=== PATIENT | female | born 1970 | race Caucasian/White ===

== ENCOUNTER 2017-03-24 05:48 | Inpatient (IN) | payer OTHER ==
[~2017-03-24] VITALS: Ht 152.4 cm; Wt 57.1 kg
[2017-03-24] VITALS (29 sets, daily range): BP systolic 100–140; BP diastolic 61–80; PULSE 64–94; RESP 16–24; Ht 152.4 cm; Wt 57.1 kg
[2017-03-24] MEDS ORDERED: HYDR-906 PO (07:01)
[2017-03-24] MEDS ORDERED: ONDANSETRON 4 MG INJ IV STA (08:13)
[2017-03-24] MEDS ORDERED: MEPERIDINE 50 MG INJ IV ONE (08:30)
[2017-03-24] MEDS ORDERED: NEOSTIGMINE 3 MG/3 ML SYRINGE ONE (10:45)
[2017-03-24] MEDS ORDERED: PROPOFOL 20 ML ONE (10:45)
[2017-03-24] MEDS ORDERED: FENTAnyl 50 MCG/ML VIAL ONE (10:45)
[2017-03-24] MEDS ORDERED: ROCURONIUM 50 MG INJ ONE (10:45)
[2017-03-24] MEDS ORDERED: LIDOCAINE 2% (SDV) 5 ML INJ ONE (10:45)
[2017-03-24] MEDS ORDERED: GLYCOPYRROLATE 0.4 MG INJ ONE (10:45)
[2017-03-24] MEDS ORDERED: MIDAZOLAM 1 MG/ML 2 ML INJ ONE (10:46)
[2017-03-24] MEDS ORDERED: morphine SULFATE/PF (10 MG/10 ML) INJ ONE (10:46)
[2017-03-24] MEDS ORDERED: DEXAMETHASONE 4 MG/ML 1 ML INJ ONE (10:51)
[2017-03-24] MEDS ORDERED: ONDANSETRON 4 MG INJ ONE (10:51)
[2017-03-24] MEDS ORDERED: LABETALOL HCL 20MG INJ ONE (11:52)
--- NOTE | 2017-03-24 12:49 | PREOPHP ---
DATE OF ADMISSION: 03/24/2017 HISTORY OF PRESENT ILLNESS: This is a 47-year-old lady 3, para 3. Her last normal menstrual period was many months ago. She was admitted for exploratory laparotomy, supracervical hysterectomy, possible. Dictated By: Jazmin Montero MD /[email or web address]/kana /Document#: [id number]
--- NOTE | 2017-03-24 13:14 | PREOPHP ---
DATE OF ADMISSION: 03/24/2017 HISTORY OF PRESENT ILLNESS: This is a 47-year-old lady, 3, para 3. Her last normal menstrual period was many months ago. She was admitted for exploratory laparotomy, supracervical hysterectomy, possible HETAL and BSO. This patient complains of on and off vaginal bleeding for many months and getting worse up to the time of admission. She also has chronic pelvic pain for many months as well. She had gone to [facility] because of anemia. She was given blood products substitute. Patient is [employer]. The time of the day prior to admission her hematocrit was 33 percent. The splitter tender, Dr. Ramos was notified of the surgery and she saw the patient before the surgery. The patient does not like her ovaries to be taken out if the ovaries looks normal. She also knows that she would like her cervix to be left behind as she has normal Pap smears. PAST MEDICAL HISTORY: No history of TB, asthma. PAST SURGICAL HISTORY: She had spine surgery 2010, she had surgery 2002 and 2004. She had kidney surgery 2002. She had tubal ligation in 1998. FAMILY HISTORY: Mother has high blood pressure, diabetes, and cancer. ALLERGIES: NO ALLERGIES. SOCIAL HISTORY: The patient does not smoke. She does not drink. She does not take any drugs except her iron and vitamins. She had menarche at the age of 12, every 28 days interval, 3-4 days duration and moderate in amount. FAMILY HISTORY: Noncontributory. She is 3, para 3 with 3 normal deliveries. REVIEW OF SYSTEMS: CARDIOVASCULAR: No chest pains. RESPIRATORY: No cough. GASTROINTESTINAL: No diarrhea, no vomiting. GENITOURINARY: No dysuria. PHYSICAL EXAMINATION: GENERAL: Reveals a conscious, coherent lady, and in not acute distress. VITAL SIGNS: Her blood pressure 120/70, pulse rate 80 per minute, respirations 16 per minute. BREASTS, HEART AND LUNGS: Within normal limits. ABDOMEN: Soft. No organomegaly. PELVIC: Exam revealed the cervix to be firm. Uterus about 12 weeks' size and adnexa were negative for masses. RECTAL: Confirmed the pelvic findings. EXTREMITIES: No pedal edema. ADMITTING DIAGNOSES: Fibroid uterus, menometrorrhagia and chronic pelvic pain. The patient was planned to have the above procedure. Dictated By: Jazmin Montero MD /[email or web address]/kana /Document#: [id number] MTDD
--- NOTE | 2017-03-24 13:32 | SIPON ---
Date/Time of Note Date/Time of Note DATE: 03/24/17 TIME: 13:28 Operative Report Preoperative Diagnosis MENOMETRORRHAGIA FIBROID UTERUS CHRONIC PELVIC PAIN PERINEAL RELAXATION Postoperative Diagnosis MENOMETRORRHAGIA FIBROID UTERUS CHRONIC PELVIC PAIN PERINEAL RELAXATION PELVIC ADHESION Operation/Procedure Performed SUPRACERVICAL HYSTERECTOMY LYSIS OF ADHESION BILATERAL SALPINGECTOMY VAGINAL VAULT SUSPENSION Surgeon see signature line dental laboratory assistant DR GALAN Anesthesia: general Estimated blood loss: 250 - 300 ml's Transfusion Required none Specimen PARTS OF CERVIX BODY OF UTERUS BOTH TUBES Grafts/Implants none Complications none LEMUEL CARRASQUILLO MD Mar 24, 2017 13:32
[2017-03-24] MEDS: HYDROmorphONE (0.2 MG/ML) 10ML SYG IV PRN ×3 (13:57→14:10)
[2017-03-24] MEDS ORDERED: morphine (1 MG/ML) 10ML SYRINGE IV PRN (14:00)
[2017-03-24] MEDS ORDERED: hydrALAzine 20 MG INJ IV PRN (14:00)
[2017-03-24] MEDS ORDERED: MIDAZOLAM 1 MG/ML 2 ML INJ IV PRN (14:00)
[2017-03-24] MEDS ORDERED: FENTAnyl 50 MCG/ML VIAL IV PRN ×3 (14:00)
[2017-03-24] MEDS ORDERED: TRIMETHOBENZAMIDE 100 MG/ML VIAL IM PRN (14:00)
[2017-03-24] MEDS ORDERED: ALBUMIN HUMAN 5% 250 ML IV PRN (14:00)
[2017-03-24] MEDS ORDERED: HYDROmorphONE (0.2 MG/ML) 10ML SYG IV PRN ×2 (14:00)
[2017-03-24] MEDS ORDERED: METOCLOPRAMIDE 10 MG INJ IV PRN (14:00)
[2017-03-24] MEDS ORDERED: KETOROLAC 30 MG INJ IV PRN (14:00)
[2017-03-24] MEDS ORDERED: ONDANSETRON 4 MG INJ IV PRN (14:00)
[2017-03-24] MEDS ORDERED: DIPHENHYDRAMINE 50 MG INJ IV PRN (14:00)
[2017-03-24] MEDS ORDERED: MEPERIDINE 25 MG INJ IV PRN (14:00)
[2017-03-24] MEDS ORDERED: EPHEDrine SULFATE 50 MG/5 ML SYG IV PRN (14:00)
[2017-03-24] MEDS ORDERED: ALBUTEROL 0.083% (NEB) 2.5 MG/3 ML AMP HHN PRN (14:00)
--- NOTE | 2017-03-24 14:32 | CONS ---
Date/Time of Note Date/Time of Note DATE: 03/24/17 TIME: 14:22 Assessment/Plan Assessment/Plan Chief Complaint/Hosp Course 47 yo with #iron deficiency anemia #menorrhagia #admission for hysterectomy -currently patient's Hg is at 11.3 and stable -if patient bleeds profusely during the surgery and/ or her Hg drop below 8 after surgery, we will be ready to start Procrit and IV iron if necessary. This will bring up the Hg gradually without a blood transfusion being necessary.] -pt may proceed with surgery at this time -she should continue with po iron as an out patient Problems: Consultation Date/Type/Reason Admit Date/Time Mar 24, 2017 at 06:23 Date of Consultation: Mar 24, 2017 Type of Consultation: hematology Reason for Consultation anemia in a Jehovah witness Referring Provider: LEMUEL CARRASQUILLO MD Hx of Present Illness 47-year-old [id number] who is being admitted for exploratory laparotomy and possible HETAL and BSO. This patient has had heavy menstrual bleeding and has required hospitalizations. Given that she does not accept blood transfusion she has required procrit and iron in the past elevate her Hg. We have been consulted to assist with her anemia in the case that she has heavy bleeding during the surgery. Subjective hx not possible: other (tired) Constitutional: no complaints, poor po Eyes: no complaints ENT: no complaints Respiratory: no complaints Cardiovascular: no complaints Gastrointestinal: decreased appetite Genitourinary: bleeding Musculoskeletal: no complaints Skin: no complaints Neurologic: no complaints Past Medical History She had spine surgery 2010, she had surgery 2002 and 2004. She had kidney surgery 2002. She had tubal ligation in 1998. Family History Significant Family History: other (diabetes and HTN in her family) Social History Alcohol Use: none Smoking Status: Never smoker Exam/Review of Systems Vital Signs Vitals Vital Signs Date Time Temp Pulse Resp B/P Pulse Ox O2 Delivery O2 Flow Rate FiO2 03/24/17 13:48 76 19 114/77 100 Room Air 03/24/17 13:40 98.0 Exam Constitutional: alert, oriented Psych: no complaints Head: normocephalic Eyes: nl conjunctiva ENMT: nl external ears & nose Neck: non-tender, supple Respiratory: clear to auscultation Cardiovascular: regular rate and rhythm Musculoskeletal: nl extremities to inspection Medications Medications Current Medications Ondansetron HCl (Zofran Inj) 4 mg Q4H PRN IV NAUSEA AND/OR VOMITING; Start at 14:00 Bisacodyl (Dulcolax Supp) 10 mg ONCE ONCE DC ; Start 03/25/17 at 06:00; Stop 03/25/17 at 06:01 Bisacodyl (Dulcolax Supp) 10 mg ONCE ONCE DC ; Start 03/25/17 at 17:00; Stop 03/25/17 at 17:01 Magnesium Hydroxide (Milk Of Mag) 30 ml ONCE ONCE PO ; Start 03/25/17 at 06:00 ; Stop 03/25/17 at 06:01 Magnesium Hydroxide (Milk Of Mag) 30 ml ONCE ONCE PO ; Start 03/25/17 at 17:00 ; Stop 03/25/17 at 17:01 Oxycodone/ Acetaminophen (Percocet (5/ 325)) 1 tab Q3H PRN PO MILD PAIN LEVEL 1 -3; Start 03/25/17 at 14:00 Oxycodone/ Acetaminophen (Percocet (5/ 325)) 1 tab Q3H PRN PO MODERATE PAIN LEVEL 4-6; Start 03/25/17 at 14:00 Oxycodone/ Acetaminophen (Percocet (5/ 325)) 2 tab Q3H PRN PO SEVERE PAIN LEVEL 7-10; Start 03/25/17 at 14:00 NICHOLAS SHEPHERD M.D. Mar 24, 2017 14:32
[2017-03-24 14:43] LABS: ADD UMIC YES; UR ASCORBIC ACID NEGATIVE (NEGATIVE); UR BACTERIA FEW /HPF (NONE SEEN); UR BILIRUBIN (Dip) NEGATIVE (NEGATIVE); UR BLOOD (Dip) 3+ mg/dL (NEGATIVE); UR CLARITY SLIGHTLY CLOUDY (CLEAR); UR COLOR YELLOW (YELLOW); UR GLUCOSE (Dip) NEGATIVE (NEGATIVE); UR KETONES (Dip) TRACE mg/dL (NEGATIVE); UR LEUKOCYTE ESTERASE (Dip) NEGATIVE Leu/ul (NEGATIVE); UR MUCUS FEW /HPF (NONE SEEN); UR NITRITE (Dip) NEGATIVE (NEGATIVE); UR RBC 97 /HPF (0-5); UR SPECIFIC GRAVITY (Dip) 1.026 (1.003-1.030); UR TOTAL PROTEIN (Dip) NEGATIVE (NEGATIVE); UR UROBILINOGEN (Dip) NEGATIVE (NEGATIVE)
[2017-03-24] MEDS ORDERED: HYDROmorphONE 0.2 MG/ML PCA IV SCH (16:30)
[2017-03-24] MEDS: DEXTROSE 5%-LR 1,000 ML IV SCH (18:10)
--- NOTE | 2017-03-24 18:15 | OPR ---
DATE OF OPERATION: 03/24/2017 PREOPERATIVE DIAGNOSIS: 1. Chronic pelvic pain. 2. Menometrorrhagia. 3. Fibroid uterus. 4. Perineal relaxation. POSTOPERATIVE DIAGNOSIS: 1. Chronic pelvic pain. 2. Menometrorrhagia. 3. Fibroid uterus. 4. Perineal relaxation. 5. Severe pelvic and abdominal adhesions. SURGEON: Jazmin Montero MD MAINTENANCE MACHINE REPAIRER: Luly Posadas MD ANESTHESIA: General. ANESTHESIOLOGIST: Evens Causey MD OPERATION PERFORMED: Exploratory laparotomy, supracervical hysterectomy and bilateral salpingectomies, lysis of severe pelvic and abdominal adhesions and vaginal vault suspension. OPERATIVE PROCEDURE: Under general anesthesia, the patient was prepped and draped in the usual fashion for abdominal surgery. Then, after checking for the effect of the anesthesia, a Pfannenstiel incision 12 cm skin incision was performed. The incision was carried from the skin up to the fascia. Upon opening the skin up to the fascia, the small blood vessels were noted to be oozing and these were all cauterized fascia. A 12 cm skin incision was performed. The fascia was opened transversely followed by splitting the muscles vertical and the peritoneum vertically. Upon opening the abdominal cavity, the omentum was noted to be attached all over the anterior parietal peritoneum. All these adhesions were lysed by sharp and blunt dissection. After lysing all the adhesions, then the uterus was noted to be about 16 weeks' size and globular. Then the self-retaining retractor was put in place. The bladder blade was put in place. The bowels were packed away from the operative field with the aid of 6 wet lap sponges. The upper blade was put in place. The uterus was pulled out from the pelvic cavity, with the aid of a tenaculum. Then two 8-inch Kochers were placed at its paratubal and paraovarian ligament for traction. The left round ligament was grasped with 2 Kochers and cut. A stick tie with 0 Vicryl was used and the left broad ligament was skeletonized for the development of the bladder flap. The left utero-ovarian, left uterotubal ligament was grasped with 2 Yanet clamps and for backflow with straight Guillermo and cut. At first a free tie with 0 Vicryl was used followed by Yanet suture. Bleeders were checked and there was no bleeding noted. Then the same thing was done on the right side. The right round ligament was grasped with 2 Kochers and cut. A stick tie with 0 Vicryl was used and tied then the right broad ligament was skeletonized for the development of the bladder flap. Then the right utero-ovarian, right uterotubal ligament was grasped with 2 Yanet clamps and for backflow with straight Guillermo and cut. At first a free tie with 0 Vicryl was used followed by Yanet suture. Bleeders were checked and there was no bleeding noted. After checking for any bleeders, in which there were none, then the broad ligament on both sides were skeletonized for the development of the bladder flap. Then the left uterine vessels were brought to view. The left uterine vessels were grasped with 2 Yanet clamps and for backflow with straight Gulilermo and cut. A stick tie with 0 Vicryl was used on its clamp. Bleeders were checked and there was no bleeding noted. Same thing was done on the right side. The right uterine vessels were grasped with 2 Yanet clamps and for backflow with straight Guillermo and cut. A stick tie with 0 Vicryl was used on its clamp then the body of the uterus was excised for good visualization of the operative field. The pelvis was noted to be very deep and the cervix was noted to be long, about 3-1/2 inches long. Then the remaining cervix was grasped with 2 single- tooth tenaculums. Once again, the bladder was from the cervix by sharp and blunt dissection. About 4 more Kochers were placed at its paracervical tissue on the left and right side and on its Guillermo the tissue was cut and a stick tie with 0 Vicryl was used. Bleeders were checked and there was no bleeding noted. One piece of cervix was excised as the pelvis was noted to be deep and difficult to view the operative field. Then the remaining cervix was grasped again with 2 single-tooth tenaculums. Once again, the bladder was from the cervix by sharp and blunt dissection. Another 5 more Kochers were placed at its paracervical tissue on the left and right side and on its Guillermo, the tissue was cut and a stick tie with 0 Vicryl was used. This was done on both sides; 5 Kochers on both sides. Then the bleeders were checked and there was no bleeding noted. Another piece of cervix was excised and 1/3 of the cervix was left behind. The remaining cervix was grasped with a single- tooth tenaculum. Then, once again, the bladder was from the cervix by sharp and blunt dissection. Then, after checking for any bleeders, in which there were none, then both ovaries were identified. They were healthy looking. But the ovary on both sides were decided to be left behind. Then the remaining cervix was closed in 3 layers, continuous suture was used with 0 Vicryl. The right angle of the cervix was sutured with a right paracervical tissue and in turn tied with the right round ligament for vaginal vault suspension. Same thing was done on the left side. Bleeders were checked and there was no bleeding noted. After correct sponge count, needle count, and instrument count is confirmed by the testing and regulating technician and recreation facilities supervisor, the abdomen was closed in the usual fashion. After checking for any bleeders, and there were none. The area was covered with Surgicel. As mentioned all the stumps were checked for any bleeders, and there was no bleeding noted. Then, after checking for any bleeders, in which there was none, and after correct sponge count, needle count, and instrument count, the abdomen was closed in the usual fashion using 0 Vicryl for the peritoneum, 0 Vicryl for the muscles, for the fascia 0 Vicryl continuous stitch was used, followed by a few [id number] sutures for the subcutaneous tissue it was closed with 3-0 Vicryl, subcuticular suture was used. The patient tolerated the procedure well. Estimated blood loss was about 300 mL. Vital signs were stable during and after the procedure. Dictated By: Jazmin Montero MD /[email or web address]/galdino /Document#: [id number]
[2017-03-24] MEDS: ONDANSETRON 4 MG INJ IV PRN (20:52)
[2017-03-25] MEDS: DEXTROSE 5%-LR 1,000 ML IV SCH ×4 (01:40→22:25)
[2017-03-25] MEDS: ONDANSETRON 4 MG INJ IV PRN ×5 (03:40→21:19)
[2017-03-25 05:22] LABS: BASOPHILS % 0.1 % (0.0-2.0); HEMATOCRIT 29.8 % (37.0-47.0); LYMPHOCYTES # 0.7 10^3/ul (0.8-2.9); LYMPHOCYTES % 5.7 % (15.0-51.0); MEAN CORPUSCULAR HEMOGLOBIN 28.8 pg (29.0-33.0); MEAN CORPUSCULAR HGB CONC 30.2 g/dl (32.0-37.0); MEAN CORPUSCULAR VOLUME 95.5 fl (82.0-101.0); MEAN PLATELET VOLUME 9.2 fl (7.4-10.4); MONOCYTE # 0.8 10^3/ul (0.3-0.9); MONOCYTES % 6.5 % (0.0-11.0); NEUTROPHIL # 10.5 10^3/ul (1.6-7.5); NEUTROPHILS % 87.3 % (39.0-77.0); PLATELET COUNT 237 10^3/UL (140-415); RED BLOOD COUNT 3.12 10^6/ul (4.20-5.40); RED CELL DISTRIBUTION WIDTH 20.6 % (11.5-14.5)
[2017-03-25] MEDS ORDERED: MAGNESIUM HYDROXIDE 30ML CUP PO ONE ×3 (06:00→17:00)
[2017-03-25] MEDS ORDERED: BISACODYL 10 MG SUPP PR ONE ×3 (06:00→17:00)
[2017-03-25 06:05] LABS: ALBUMIN 2.9 g/dl (3.3-4.9); BILIRUBIN,INDIRECT 0.1 mg/dl (0-1.1); BILIRUBIN,TOTAL 0.1 mg/dl (0.2-1.3); CALCIUM 8.5 mg/dl (8.4-10.2); CREATININE 0.64 mg/dl (0.44-1.00); POTASSIUM 4.1 mmol/L (3.5-5.1); TOTAL PROTEIN 5.8 g/dl (6.1-8.1)
[2017-03-25 07:37] VITALS: BP 106/64; RESP 19
[2017-03-25] MEDS: SOD FERRIC GLUC COMPLX 125 MG in SOD CHLORIDE 0.9% 100 ML IVPB SCH (09:27)
[2017-03-25] MEDS ORDERED: OXYCODONE/ACETAMINOPHEN (5/325) TAB PO PRN ×2 (10:30)
[2017-03-25] MEDS: OXYCODONE/ACETAMINOPHEN (5/325) TAB PO PRN ×4 (11:11→20:24)
[2017-03-25 19:00] VITALS: BP 122/68; RESP 20
--- NOTE | 2017-03-25 22:19 | CONS ---
Date/Time of Note Date/Time of Note DATE: 03/25/17 TIME: 22:16 Assessment/Plan Assessment/Plan Chief Complaint/Hosp Course 47 yo with #iron deficiency anemia #menorrhagia #admission for hysterectomy #[facility] -currently patient's Hg post op dropped to 9 -will start Ferrlecit 125 mg IV daily while patient is in house Problems: Consultation Date/Type/Reason Admit Date/Time Mar 24, 2017 at 06:23 Initial Consult Date 03/24/17 Type of Consultation: hematology Reason for Consultation iron deficiency anemia Referring Provider: LEMUEL CARRASQUILLO MD 24 HR Interval Summary Free Text/Dictation pt is s/p hysterectomy. feels tired Exam/Review of Systems Vital Signs Vitals Vital Signs Date Time Temp Pulse Resp B/P Pulse Ox O2 Delivery O2 Flow Rate FiO2 03/25/17 19:00 97.8 69 20 122/68 97 03/24/17 15:20 Room Air Intake and Output 03/24/17 03/24/17 03/25/17 14:59 22:59 06:59 Intake Total 1200 ml 1375 ml Output Total 525 ml 200 ml Balance 675 ml -200 ml 1375 ml Exam Constitutional: alert, oriented Psych: no complaints Head: normocephalic Eyes: nl conjunctiva ENMT: nl external ears & nose Neck: non-tender, supple Respiratory: clear to auscultation, normal air movement Cardiovascular: regular rate and rhythm Gastrointestinal: surgical scars (]), tender Musculoskeletal: nl extremities to inspection Results Result Diagram: 03/25/17 0453 03/25/17 0453 Results 24 hrs Laboratory Tests Test 03/25/17 04:53 White Blood Count 12.0 H Red Blood Count 3.12 L Hemoglobin 9.0 L Hematocrit 29.8 L Mean Corpuscular Volume 95.5 Mean Corpuscular Hemoglobin 28.8 L Mean Corpuscular Hemoglobin Concent 30.2 L Red Cell Distribution Width 20.6 H Platelet Count 237 Mean Platelet Volume 9.2 Neutrophils % 87.3 H Lymphocytes % 5.7 L Monocytes % 6.5 Eosinophils % 0.0 Basophils % 0.1 Nucleated Red Blood Cells % 0.0 Neutrophils # 10.5 H Lymphocytes # 0.7 L Monocytes # 0.8 Eosinophils # 0.0 Basophils # 0.0 Nucleated Red Blood Cells # 0.0 Sodium Level 141 Potassium Level 4.1 Chloride Level 110 Carbon Dioxide Level 22 Anion Gap 13 Blood Urea Nitrogen 9 Creatinine 0.64 Glucose Level 192 Calcium Level 8.5 Total Bilirubin 0.1 L Direct Bilirubin 0.00 Indirect Bilirubin 0.1 Aspartate Amino Transf (AST/SGOT) 22 Alanine Aminotransferase (ALT/SGPT) 39 Alkaline Phosphatase 53 Total Protein 5.8 L Albumin 2.9 L Globulin 2.90 Albumin/Globulin Ratio 1.00 Medications Medications Current Medications Ondansetron HCl (Zofran Inj) 4 mg Q4H PRN IV NAUSEA AND/OR VOMITING Last administered on 03/25/17 21:19; Admin Dose 4 MG; Start 03/24/17 at 14:00 Oxycodone/ Acetaminophen (Percocet (5/ 325)) 1 tab Q3H PRN PO MILD PAIN LEVEL 1 -3; Start 03/25/17 at 10:30 Oxycodone/ Acetaminophen (Percocet (5/ 325)) 1 tab Q3H PRN PO MODERATE PAIN LEVEL 4-6; Start 03/25/17 at 10:30 Oxycodone/ Acetaminophen 2 tab 2 tab Q3H PRN PO SEVERE PAIN LEVEL 7-10 Last administered on 03/25/17 20:24; Admin Dose 2 TAB; Start 03/25/17 at 10:30 Dextrose/Lactated Ringer's 1,000 ml @ 125 mls/hr Q8H IV Last administered on 03/25/17 09:27; Admin Dose 125 MLS/HR; Start 03/24/17 at 18:00 Ferric Sodium Gluconate Complex/ Sodium Chloride (Ferrlecit/NS) 110 ml @ 100 mls/hr Q24H IVPB Last administered on 03/25/17 09:27; Admin Dose 100 MLS/HR; Start 03/25/17 at 10:00; Stop 03/27/17 at 11:05 NICHOLAS SHEPHERD M.D. Mar 25, 2017 22:19
[2017-03-26] VITALS (7 sets, daily range): BP systolic 109–156; BP diastolic 60–85; PULSE 74–82; RESP 14–20
[2017-03-26 05:41] LABS: BASOPHILS % 0.2 % (0.0-2.0); EOSINOPHILS % 0.4 % (0.0-7.0); HEMATOCRIT 30.9 % (37.0-47.0); HEMOGLOBIN 9.4 g/dl (12.0-16.0); LYMPHOCYTES # 2.5 10^3/ul (0.8-2.9); LYMPHOCYTES % 22.4 % (15.0-51.0); MEAN CORPUSCULAR HGB CONC 30.4 g/dl (32.0-37.0); MEAN CORPUSCULAR VOLUME 95.4 fl (82.0-101.0); MEAN PLATELET VOLUME 9.6 fl (7.4-10.4); MONOCYTE # 0.7 10^3/ul (0.3-0.9); MONOCYTES % 5.9 % (0.0-11.0); NEUTROPHILS % 70.7 % (39.0-77.0); PLATELET COUNT 267 10^3/UL (140-415); RED BLOOD COUNT 3.24 10^6/ul (4.20-5.40); RED CELL DISTRIBUTION WIDTH 20.2 % (11.5-14.5); WHITE BLOOD COUNT 11.3 10^3/ul (4.8-10.8)
[2017-03-26 06:02] LABS: CALCIUM 8.5 mg/dl (8.4-10.2); CREATININE 0.7 mg/dl (0.44-1.00)
[2017-03-26] MEDS: OXYCODONE/ACETAMINOPHEN (5/325) TAB PO PRN ×4 (06:03→19:31)
[2017-03-26] MEDS: DEXTROSE 5%-LR 1,000 ML IV SCH ×3 (06:04→23:33)
[2017-03-26] MEDS: ONDANSETRON 4 MG INJ IV PRN ×4 (08:24→19:31)
[2017-03-26] MEDS: SOD FERRIC GLUC COMPLX 125 MG in SOD CHLORIDE 0.9% 100 ML IVPB SCH (09:52)
[2017-03-26] MEDS ORDERED: HYDROmorphONE 0.5 MG/0.5 ML SYG IV PRN (20:30)
[2017-03-26] MEDS ORDERED: HYDROCODONE/APAP (5/325) TAB PO PRN (23:30)
[2017-03-26] MEDS: HYDROCODONE/APAP (5/325) TAB PO PRN (23:33)
[2017-03-26] MEDS: ONDANSETRON 4 MG INJ IV SCH (23:34)
[2017-03-27] VITALS: BP 116/71; RESP 18
[2017-03-27] MEDS: ONDANSETRON 4 MG INJ IV SCH ×3 (03:19→12:16)
[2017-03-27] MEDS: HYDROCODONE/APAP (5/325) TAB PO PRN ×3 (03:19→13:32)
[2017-03-27 04:00] VITALS: BP 122/77; PULSE 84; RESP 18
[2017-03-27 07:44] VITALS: BP 129/76; RESP 18
[2017-03-27] MEDS: DEXTROSE 5%-LR 1,000 ML IV SCH (07:50)
[2017-03-27 08:48] LABS: BASOPHILS % 0.3 % (0.0-2.0); EOSINOPHILS # 0.2 10^3/ul (0.0-0.5); EOSINOPHILS % 1.8 % (0.0-7.0); HEMATOCRIT 37.2 % (37.0-47.0); HEMOGLOBIN 11.2 g/dl (12.0-16.0); LYMPHOCYTES # 1.9 10^3/ul (0.8-2.9); LYMPHOCYTES % 18.1 % (15.0-51.0); MEAN CORPUSCULAR HEMOGLOBIN 28.7 pg (29.0-33.0); MEAN CORPUSCULAR HGB CONC 30.1 g/dl (32.0-37.0); MEAN CORPUSCULAR VOLUME 95.4 fl (82.0-101.0); MEAN PLATELET VOLUME 9.1 fl (7.4-10.4); MONOCYTE # 0.6 10^3/ul (0.3-0.9); MONOCYTES % 5.3 % (0.0-11.0); NEUTROPHIL # 7.9 10^3/ul (1.6-7.5); NEUTROPHILS % 74.2 % (39.0-77.0); PLATELET COUNT 337 10^3/UL (140-415); RED CELL DISTRIBUTION WIDTH 18.8 % (11.5-14.5); WHITE BLOOD COUNT 10.7 10^3/ul (4.8-10.8)
[2017-03-27] MEDS: SOD FERRIC GLUC COMPLX 125 MG in SOD CHLORIDE 0.9% 100 ML IVPB SCH (09:34)
== END 2017-03-27 16:20 | disposition home or self-care (01) | DRG 743 ==
LOC: REC 06:23 → MS1 14:32
PROVIDERS: ADMIT Obstetrics & Gynecology; ATTEND Obstetrics & Gynecology
PROC: 0JNC0ZZ Release Pelvic Region Subcutaneous Tissue and Fascia, Open Approach (ICD-10-PCS; 2017-03-24)
PROC: 0UT70ZZ Resection of Bilateral Fallopian Tubes, Open Approach (ICD-10-PCS; 2017-03-24)
PROC: 0DNU0ZZ Release Omentum, Open Approach (ICD-10-PCS; 2017-03-24)
PROC: 0USG0ZZ Reposition Vagina, Open Approach (ICD-10-PCS; 2017-03-24)
PROC: 0UT90ZL Resection of Uterus, Supracervical, Open Approach (ICD-10-PCS; principal; 2017-03-24 09:00)
DX: D25.9 Leiomyoma of uterus, unspecified (principal); D50.9 Iron deficiency anemia, unspecified; G89.29 Other chronic pain; R10.2 Pelvic and perineal pain; N92.1 Excessive and frequent menstruation with irregular cycle; N81.89 Other female genital prolapse; N73.6 Female pelvic peritoneal adhesions (postinfective); Z98.51 Tubal ligation status
CPT/HCPCS: 80048; 80053; 81001; 84703; 85025; 87086; 88305; J1100; J1170; J1885; J2175; J2250; J2274; J2405; J2710; J2916; J3010; J7121